=== PATIENT | female | born 1995 | race Caucasian/White ===

== ENCOUNTER 2016-07-28 02:49 | Emergency (ER) | payer OTHER ==
--- NOTE | ~2016-07-28 | CT16 ---
[facility] A Service of [facility] / [facility] RADIOLOGY TEXT RESULTS PATIENT: SILVINO WILKINS LOCATION: SED : [birth year] UNIT #: [id number] AGE: [address]: Obed Bee MD SEX: F ORDER DR: [id number] [place] [id number] E MR#: [id number] Acc #: [id number] NAME: SILVINO WILKINS : 1995 SEX: F STUDY DATE/TIME: 07/28/2016 05:10 UNIT: SED ROOM: STUDY DESCRIPTION: CT Angio Chest for PE Attending Physician: Obed Bee M.D. Ordering Physician: Obed Bee M.D. Primary Care Physician: Primary Care Physician No MEDICAL IMAGING REPORT This report is preliminary unless electronic signature is present. EXAM Chest CTA 07/28/2016 05:10 INDICATION Elevated D-dimer today. Heart palpitations that started 30 minutes ago. Some shortness of air as well. TECHNIQUE Axial images were obtained through the chest following IV contrast administration. 3-D reformats were obtained. Comparison made with 05/09/2012. This CT examination was performed with one or more of the following radiation dose reduction techniques: automatic exposure control, adjustment of mA and/or kV according to patient size, and iterative reconstruction. FINDINGS There is no pulmonary embolism or aortic dissection. There is no pleural or pericardial effusion. There is no adenopathy. Lungs are clear. Upper abdomen is unremarkable. IMPRESSION No pulmonary embolism or aortic dissection. Normal chest CT. Dictated by... Jerry Fournier Jr., M.D. THIS IS AN ELECTRONICALLY VERIFIED REPORT Jerry Fournier Jr., M.D. at 07/28/2016 10:14 PM DANISH/anabela TD: 07/28/2016 07:13 [facility] A Service of [facility] / [facility] RADIOLOGY TEXT RESULTS PATIENT: SILVINO WILKINS LOCATION: SED : 93 UNIT #: [id number] AGE: [address]: Obed Bee MD SEX: F ORDER DR: JOB #: [id number] MEDICAL IMAGING REPORT Page 1 of 1
--- NOTE | ~2016-07-28 | EKG ---
PATIENT: SILVINO WILKINS UNIT #: [id number] Ventricular Rate: 95 BPM Atrial Rate: 95 BPM P-R Interval: 128 ms QRS Duration: 72 ms Q-T Interval: 354 ms QTC Calculation(Bezet): 444 ms P Boswell: 31 degrees Calculated R Boswell: 43 degrees Calculated T Boswell: 34 degrees Diagnosis Line: Normal sinus rhythm Diagnosis Line: Baseline wander Otherwise normal ECG Diagnosis Line: When compared with ECG of 08-MAY-2012 23:12, Diagnosis Line: Vent. rate has increased BY 37 BPM Diagnosis Line: Confirmed by GARRETT COOK MD ([id number]) on 07/28/2016 Diagnosis Line: 5:25:53 PM INTERPRETING MD: JOYCE MERINO
[~2016-07-28 02:49] MED LIST: ALBUTEROL MININEB NEB; ALBUTEROL17 GM INH; ALBUTEROL20 ml INH; AMOXICILLIN PO; ASTHMANEX; ASTHMANEX INH; BENZONATATE PO; CEPHALEXIN500 M1 PO; IBUPROFEN800 MG PO; MOTRIN600 MG; MOTRIN600 MG PO; NAPROSYN500 MG PO; ORTHO TRI-7 DAYSX 3 PO; PERCOCET; PHENERGAN DM1 ML PO; PREDNISONE PO; PREDNISONE10 MG PO; PREDNISONE50 MG PO; SINGULAIR PO; ULTRAM PO; VICODIN 5-3001 EACH PO; VOLTAREN75 MG PO; ZITHROMAX PO; ZOFRANODT PO
[2016-07-28] MEDS ORDERED: NO MEDICATIONS (02:55)
[2016-07-28 04:04] LABS: BASOPHIL% 0.2 % (0-2.5); EOSINOPHIL# 0.3 X10e3 (0-0.7); EOSINOPHIL% 2.3 % (0.0-7.0); HEMATOCRIT 41.6 % (35.0-45.0); HEMOGLOBIN 13.8 gm/dL (12.0-16.0); LYMPHOCYTE% 34.8 % (17.0-45.0); MEAN CELL VOLUME 89.6 FL (83-96); MEAN CORPUSCULAR HEMOGLOBIN 29.7 PG (28-34); MEAN CORPUSCULAR HGB CONC 33.2 g/dL (30-36); MEAN PLATELET VOLUME 6.8 FL (6.5-11.5); MONOCYTE# 0.8 X10e3 (0-1.0); NEUTROPHIL# 6.3 X10e3 (1.5-7.1); NEUTROPHIL% 55.7 % (40-75); PLATELET COUNT 329 X10e3 (140-420); RED BLOOD COUNT 4.65 X10e (3.90-5.30); RED CELL DISTRIBUTION WIDTH 12.8 % (11.0-15.5); WHITE BLOOD COUNT 11.4 X10e3 (4.0-10.5)
[2016-07-28 04:08] LABS: DIFF IND NO
[2016-07-28 04:17] LABS: PROTHROMBIN TIME (PATIENT) 11.3 SECONDS (9.5-12.4)
[2016-07-28 04:18] LABS: POC - CKMB <1.0 ng/mL (0.0-7.9); POC - TROPONIN <0.05 ng/mL (<=0.05)
[2016-07-28 04:24] LABS: PARTIAL THROMBOPLASTIN TIME 22.7 SECONDS (25.6-38.1)
[2016-07-28 04:25] LABS: BUN/CREATININE RATIO 15.55; CREATININE SERUM 0.9 mg/dL (0.6-1.4); GLOM FILT RATE Estimated 90.2 mL/min (>60); POTASSIUM 3.8 mmol/L (3.5-5.1)
== END 2016-07-28 06:02 | disposition home or self-care (01) ==
LOC: SED 02:49
PROVIDERS: Emergency Medicine
DX: R00.2 Palpitations (principal); R07.9 Chest pain, unspecified; J45.909 Unspecified asthma, uncomplicated; F17.200 Nicotine dependence, unspecified, uncomplicated; Z91.040 Latex allergy status
CPT/HCPCS: 36415; 71275; 80048; 82553; 84484; 84703; 85025; 85379; 85610; 85730; 93005; 99284; Q9967